=== PATIENT | female | born 1975 | race American Indian/Alaskan Native ===

== ENCOUNTER 2019-04-12 17:58 | Observation (INO) | payer OTHER ==
--- NOTE | 2019-04-12 18:19 | Event Note ---
ED Screening Note Date of service: 04/12/19 Time: 18:12 ED Screening Note: 44 y/o female comes in for fatigue, , chest pain, numbness right arm, dizziness, blurred vision. No PMH No meds. Blood glucose 86 This initial assessment/diagnostic orders/clinical plan/treatment(s) is/are subject to change based on patients health status, clinical progression and re- assessment by fellow clinical providers in the ED. Further treatment and workup at subsequent clinical providers discretion. Patient/guardian urged not to elope from the ED as their condition may be serious if not clinically assessed and managed. Initial orders include:
--- NOTE | 2019-04-12 19:02 | XRay Report ---
PROCEDURE: XR CHEST ROUTINE 2V TECHNIQUE: PA and lateral chest radiographs were obtained. HISTORY: Chest Pain COMPARISONS: None. FINDINGS: There is no visible pulmonary consolidation. No evidence of pneumothorax. No radiographically visible pleural effusion. Cardiac silhouette size is normal without vascular congestion. No visible acute displaced fracture in the regional skeleton. IMPRESSION: No acute cardiopulmonary disease in the visualized chest. This document is electronically signed by Adán Antoine MD., April 12 2019 07:00:09 PM ET
[2019-04-12 19:18] LABS: Basophils # (Auto) 0.1 K/mm3 (0.0-0.1); Basophils % (Auto) 1.2 % (0.0-1.8); Eosinophils # (Auto) 0.1 K/mm3 (0.0-0.4); Eosinophils % (Auto) 1.4 % (0.0-4.3); Hematocrit 38.5 % (30.3-42.9); Hemoglobin 12.7 gm/dl (10.1-14.3); Lymphocytes # (Auto) 2.5 K/mm3 (1.2-5.4); Lymphocytes % (Auto) 40.8 % (13.4-35.0); Mean Corpuscular HGB Conc 33 % (30-34); Mean Corpuscular Volume 81 fl (79-97); Monocytes # (Auto) 0.4 K/mm3 (0.0-0.8); Monocytes % (Auto) 6.4 % (0.0-7.3); Platelet Count 258 K/mm3 (140-440); Red Blood Count 4.75 M/mm3 (3.65-5.03); Red Cell Distribution Width 13.6 % (13.2-15.2)
[2019-04-12 19:44] LABS: Alanine Aminotransferase 13 units/L (7-56); Albumin 4.2 g/dL (3.9-5); BUN/Creatinine Ratio 24; Blood Urea Nitrogen 17 mg/dL (7-17); Calcium 9.4 mg/dL (8.4-10.2); Hemolysis Index 14
[2019-04-12 20:08] LABS: Bacteria,Urine 1+ /HPF (Negative); Bilirubin,Urine NEG (Negative); Blood,Urine SM (Negative); Color,Urine Straw (Yellow); Protein,Urine <15 mg/dL mg/dL (Negative); Urobilinogen,Urine < 2.0 mg/dL (<2.0)
[2019-04-12] MEDS ORDERED: MORPHINE IV ONE (20:08)
[2019-04-12] MEDS ORDERED: ANTIVERT PO ONE (20:08)
[2019-04-12 20:10] LABS: WBC,Urine < 1.0 /HPF (0.0-6.0)
--- NOTE | 2019-04-12 20:47 | Cat Scan Report ---
PROCEDURE: CT HEAD/BRAIN WO CON TECHNIQUE: Computerized tomography of the head was performed without contrast material. CT DOSE LENGTH PRODUCT: 1035.5 mGycm HISTORY: dizziness, headache COMPARISONS: None . FINDINGS: Skull and scalp: Normal . Paranasal sinuses: Normal . Ventricles and subarachnoid spaces: Normal . Cerebrum: No evidence of hemorrhage, acute infarction or mass . Cerebellum and brainstem: No evidence of hemorrhage, acute infarction or mass . Vasculature: Normal . Other: None . ASPECTS: 10 IMPRESSION: No acute intracranial abnormality. This document is electronically signed by Annamarie Cummins MD., April 12 2019 08:45:23 PM ET
--- NOTE | 2019-04-12 20:54 | Emergency Department Report ---
ED Chest Pain HPI - General Chief Complaint: Chest Pain Stated Complaint: RT ARM TINGLE/SOB/DIZZY Time Seen by Provider: 04/12/19 19:43 Source: patient Mode of arrival: Ambulatory Limitations: No Limitations - History of Present Illness Initial Comments: 44-year-old -British female presents to the emergency department with complaint of some nonspecific dizziness, some tingling in her right arm, midsternal chest pain, frontal headache that started earlier this afternoon. Currently she just complains of some mild chest tightness and a mild frontal headache. She says that it feels like her eyes have a burning sensation and she had some blurry vision earlier that has since resolved. She denies any slurred speech, fever, nausea, vomiting or any shortness of breath. No recent travel or sick contacts at home. She did not take anything for her symptoms prior to presentation. She denies any tobacco or illicit drug use. She has a primary care physician but cannot currently remember the name. Severity scale (0 -10): 6 - Related Data Home Medications Medication Instructions Recorded Confirmed Last Taken No Known Home Medications [No 04/12/19 04/12/19 Unknown Reported Home Medications] Allergies Allergy/AdvReac Type Severity Reaction Status Date / Time No Known Allergies Allergy Unverified 04/12/19 18:02 Heart Score - HEART Score History: Slightly suspicious EKG: Normal Age: 45-65 Risk factors: No known risk factors Troponin: < normal limit HEART Score: 1 - Critical Actions Critical Actions: 0-3 pts:0.9-1.7%risk of adverse cardiac event.Candidate for discharge ED Review of Systems ROS: Stated complaint: RT ARM TINGLE/SOB/DIZZY Other details as noted in HPI Comment: All other systems reviewed and negative Constitutional: denies: chills, fever Eyes: eye pain, eye discharge ENT: denies: ear pain, throat pain Respiratory: denies: cough, wheezing Cardiovascular: chest pain. denies: palpitations Gastrointestinal: denies: abdominal pain, vomiting Genitourinary: denies: urgency, dysuria Musculoskeletal: denies: back pain, arthralgia Skin: denies: rash, lesions Neurological: headache, other (dizziness) ED Past Medical Hx - Past Medical History Previous Medical History?: No - Surgical History Past Surgical History?: Yes Additional Surgical History: hysterectomy - Social History Smoking Status: Never Smoker Substance Use Type: None - Medications Home Medications: Home Medications Medication Instructions Recorded Confirmed Last Taken Type No Known Home Medications [No 04/12/19 04/12/19 Unknown History Reported Home Medications] ED Physical Exam - General Limitations: No Limitations - Other Other exam information: GENERAL: The patient is well-developed well-nourished. HENT: Normocephalic. Atraumatic. Patient has moist mucous membranes. EYES: Extraocular motions are intact. Pupils equal reactive to light bilaterally. There is some fatigable horizontal nystagmus. NECK: Supple. Trachea is midline. CHEST/LUNGS: Clear to auscultation. There is no respiratory distress noted. HEART/CARDIOVASCULAR: Regular. There is no tachycardia. There is no murmur. ABDOMEN: Abdomen is soft, nontender. Patient has normal bowel sounds. There is no abdominal distention. SKIN: Skin is warm and dry. NEURO: The patient is awake, alert, and oriented. The patient is cooperative. The patient has no focal neurologic deficits. The patient has normal speech. Cranial nerves II through XII grossly intact. No pronator drift. No dysmetria. MUSCULOSKELETAL: There is no tenderness or deformity. There is no limitation range of motion. There is no evidence of acute injury. ED Course Vital Signs 04/12/19 04/12/19 04/12/19 18:23 19:35 19:47 Temperature 97.9 F Pulse Rate 77 72 71 Respiratory 19 12 17 Rate Blood Pressure 145/87 Blood Pressure 174/92 150/85 [Left] O2 Sat by Pulse 100 100 99 Oximetry 04/12/19 04/12/19 04/12/19 20:00 20:50 21:00 Temperature Pulse Rate 68 67 69 Respiratory 14 25 H 17 Rate Blood Pressure 145/87 160/80 160/80 Blood Pressure [Left] O2 Sat by Pulse 100 100 100 Oximetry 04/12/19 04/12/19 04/12/19 21:15 21:30 21:45 Temperature Pulse Rate 66 66 72 Respiratory 20 18 19 Rate Blood Pressure 142/86 142/86 152/89 Blood Pressure [Left] O2 Sat by Pulse 99 99 100 Oximetry 04/12/19 04/12/19 04/12/19 22:00 22:16 22:30 Temperature Pulse Rate 67 66 71 Respiratory 11 L 19 17 Rate Blood Pressure 152/89 179/120 179/120 Blood Pressure [Left] O2 Sat by Pulse 100 98 100 Oximetry 04/12/19 04/12/19 04/12/19 22:46 23:00 23:16 Temperature Pulse Rate 73 66 72 Respiratory 13 16 13 Rate Blood Pressure 179/120 179/120 179/120 Blood Pressure [Left] O2 Sat by Pulse 100 100 100 Oximetry 04/12/19 04/13/19 23:47 00:00 Temperature Pulse Rate 75 67 Respiratory 16 15 Rate Blood Pressure 179/120 124/64 Blood Pressure [Left] O2 Sat by Pulse Oximetry SAIDA score - Saida Score Age > 65: (0) No Aspirin use within the Past 7 Days: (0) No 3 or more CAD Risk Factors: (0) No 2 or more Angina events in past 24 hrs: (1) Yes Known CAD with more than 50% Stenosis: (0) No Elevated Cardiac Markers: (0) No ST Deviation Greater than 0.5mm: (0) No SAIDA Score: 1 ED Medical Decision Making - Lab Data Result diagrams: 04/12/19 19:00 04/12/19 19:00 - EKG Data -: EKG Interpreted by Me EKG shows normal: sinus rhythm, axis, intervals, QRS complexes, ST-T waves Rate: normal - EKG Data When compared to previous EKG there are: previous EKG unavailable Interpretation: normal EKG - Radiology Data Radiology results: report reviewed, image reviewed interpreted by me: Chest x-ray does not show any acute process. There are no pleural effusions, obvious pneumonia and there is no pneumothorax. PROCEDURE: CT HEAD/BRAIN WO CON TECHNIQUE: Computerized tomography of the head was performed without contrast material. CT DOSE LENGTH PRODUCT: 1035.5 mGycm HISTORY: dizziness, headache COMPARISONS: None . FINDINGS: Skull and scalp: Normal . Paranasal sinuses: Normal . Ventricles and subarachnoid spaces: Normal . Cerebrum: No evidence of hemorrhage, acute infarction or mass . Cerebellum and brainstem: No evidence of hemorrhage, acute infarction or mass . Vasculature: Normal . Other: None . ASPECTS: 10 IMPRESSION: No acute intracranial abnormality. This document is electronically signed by Annamarie Cummins MD., April 12 2019 08:45:2 3 PM ET Transcribed By: [facility] Dictated By: ANNAMARIE CUMMINS MD Electronically Authenticated By: ANNAMARIE CUMMINS MD Signed Date/Time: 04/12/192046 - Medical Decision Making This patient presents to the emergency department with a complaint of a headache, dizziness/lightheadedness and some chest discomfort. On examination she does not have any focal, motor or sensory deficits in her cranial nerves are intact. CT of head without contrast did not show any bleed, shift, mass, ischemia, or any other acute process. Chest x-ray also does not show any acute process without any pneumothorax, focal consolidation, pneumonia, pleural effusions. Labs thus far been unremarkable including a negative troponin. Patient has developed some hypertension but otherwise the vital signs are stable throughout her ED course. She was given a dose of Antivert and morphine for her symptoms. Upon reevaluation she is still complaining of some mild chest pressure and a headache. She has never had a full cardiac workup and continues to have some chest discomfort, and therefore the patient will be admitted to the hospital for further evaluation and treatment was except for admission by the hospitalist, Dr Agrawal. - Differential Diagnosis DC, CVA, TIA, Costochondritis, Pneumonia Critical Care Time: No Critical care attestation.: If time is entered above; I have spent that time in minutes in the direct care of this critically ill patient, excluding procedure time. ED Disposition Clinical Impression: Acute chest pain, Dizziness, Lightheaded Headache Qualifiers: Headache type: unspecified Headache chronicity pattern: unspecified pattern Intractability: not intractable Qualified Code(s): R51 - Headache Disposition: OP ADMIT IP TO THIS HOSP Is pt being admited?: Yes Condition: Fair Time of Disposition: 00:30
--- NOTE | 2019-04-12 22:33 | History and Physical Report ---
History of Present Illness Chief complaint: Chest pain History of present illness: 44-year-old woman who presents to the hospital with right arm, substernal chest pain and frontal headache. The pain is 4 out of 10. Sternal, no exacerbating or relieving factors. It is dull in nature. She denies any focal weakness or slurred speech. She has been feeling dizzy. She states that dizziness has been constant and is not worsened by standing or sitting. She states that when her headache got really bad it was associated with blurred vision, but her vision is now normal. Headache was frontal in nature and pounding. Past medical history; denies any chronic medical conditions Surgical history hysterectomy Social history; never smoker denies illicit drugs or alcohol X Family history; significant for hypertension Medications and Allergies Allergies Allergy/AdvReac Type Severity Reaction Status Date / Time No Known Allergies Allergy Unverified 04/12/19 18:02 Home Medications Medication Instructions Recorded Confirmed Last Taken Type No Known Home Medications [No 04/12/19 04/12/19 Unknown History Reported Home Medications] Review of Systems All systems: negative Constitutional: no weight loss, no fatigue Eyes: bilateral: blurred vision Ears, nose, mouth and throat: no ear pain Breasts: deferred Cardiovascular: chest pain Respiratory: no cough Gastrointestinal: no abdominal pain Genitourinary Female: no dyspareunia Menstruation: no currently menstrual Rectal: no pain Musculoskeletal: no neck stiffness Integumentary: no rash Neurological: no head injury Psychiatric: no anxiety Endocrine: no cold intolerance Hematologic/Lymphatic: no easy bruising Allergic/Immunologic: no urticaria Exam - Constitutional Vitals: Temp Pulse Resp BP Pulse Ox 97.9 F 72 12 150/85 100 04/12/19 18:23 04/12/19 19:35 04/12/19 19:35 04/12/19 19:35 04/12/19 19:35 General appearance: Present: mild distress, well-nourished - EENT Eyes: Present: PERRL ENT: hearing intact, clear oral mucosa - Neck Neck: Present: supple, normal ROM - Respiratory Respiratory effort: normal Respiratory: bilateral: CTA - Cardiovascular Heart Sounds: Present: S1 & S2. Absent: rub, click - Extremities Extremities: pulses symmetrical, No edema Peripheral Pulses: within normal limits - Abdominal General gastrointestinal: Present: soft, non-tender, non-distended, normal bowel sounds Female genitourinary: Present: normal - Integumentary Integumentary: Present: clear, warm, dry - Musculoskeletal Musculoskeletal: gait normal, strength equal bilaterally - Psychiatric Psychiatric: appropriate mood/affect, intact judgment & insight - Neurologic Neurologic: CNII-XII intact, moves all extremities Results - Labs CBC & Chem 7: 04/12/19 19:00 04/12/19 19:00 Labs: Laboratory Last Values WBC 6.1 K/mm3 (4.5-11.0) 04/12/19 19:00 RBC 4.75 M/mm3 (3.65-5.03) 04/12/19 19:00 Hgb 12.7 gm/dl (10.1-14.3) 04/12/19 19:00 Hct 38.5 % (30.3-42.9) 04/12/19 19:00 MCV 81 fl (79-97) 04/12/19 19:00 MCH 27 pg (28-32) L 04/12/19 19:00 MCHC 33 % (30-34) 04/12/19 19:00 RDW 13.6 % (13.2-15.2) 04/12/19 19:00 Plt Count 258 K/mm3 (140-440) 04/12/19 19:00 Lymph % (Auto) 40.8 % (13.4-35.0) H 04/12/19 19:00 [place] % (Auto) 6.4 % (0.0-7.3) 04/12/19 19:00 Eos % (Auto) 1.4 % (0.0-4.3) 04/12/19 19:00 Baso % (Auto) 1.2 % (0.0-1.8) 04/12/19 19:00 Lymph # 2.5 K/mm3 (1.2-5.4) 04/12/19 19:00 [place] # 0.4 K/mm3 (0.0-0.8) 04/12/19 19:00 Eos # 0.1 K/mm3 (0.0-0.4) 04/12/19 19:00 Baso # 0.1 K/mm3 (0.0-0.1) 04/12/19 19:00 Seg Neutrophils % 50.2 % (40.0-70.0) 04/12/19 19:00 Seg Neutrophils # 3.1 K/mm3 (1.8-7.7) 04/12/19 19:00 Sodium 139 mmol/L (137-145) 04/12/19 19:00 Potassium 4.1 mmol/L (3.6-5.0) 04/12/19 19:00 Chloride 100.9 mmol/L (98-107) 04/12/19 19:00 Carbon Dioxide 24 mmol/L (22-30) 04/12/19 19:00 18 mmol/L 04/12/19 19:00 BUN 17 mg/dL (7-17) 04/12/19 19:00 0.7 mg/dL (0.7-1.2) 04/12/19 19:00 Estimated GFR > 60 ml/min 04/12/19 19:00 24 % 04/12/19 19:00 Glucose 88 mg/dL (65-100) 04/12/19 19:00 Calcium 9.4 mg/dL (8.4-10.2) 04/12/19 19:00 0.30 mg/dL (0.1-1.2) 04/12/19 19:00 AST 15 units/L (5-40) 04/12/19 19:00 ALT 13 units/L (7-56) 04/12/19 19:00 63 units/L (35-129) 04/12/19 19:00 < 0.010 ng/mL (0.00-0.029) 04/12/19 19:00 7.7 g/dL (6.3-8.2) 04/12/19 19:00 4.2 g/dL (3.9-5) 04/12/19 19:00 1.2 % 04/12/19 19:00 TSH 1.530 mlU/mL (0.270-4.200) 04/12/19 20:14 Straw (Yellow) 04/12/19 19:19 Clear (Clear) 04/12/19 19:19 5.0 (5.0-7.0) 04/12/19 19:19 Ur Specific [place] 1.006 (1.003-1.030) 04/12/19 19:19 <15 mg/dl mg/dL (Negative) 06/18/19 19:19 Neg mg/dL (Negative) 04/12/19 19:19 Tr mg/dL (Negative) 04/12/19 19:19 Sm (Negative) 04/12/19 19:19 Neg (Negative) 04/12/19 19:19 Neg (Negative) 04/12/19 19:19 < 2.0 mg/dL (<2.0) 04/12/19 19:19 Ur Leukocyte Esterase Neg (Negative) 04/12/19 19:19 < 1.0 /HPF (0.0-6.0) 04/12/19 19:19 2.0 /HPF (0.0-6.0) 04/12/19 19:19 U Epithel Cells (Auto) 4.0 /HPF (0-13.0) 04/12/19 19:19 1+ /HPF (Negative) 04/12/19 19:19 - Imaging and Cardiology Chest x-ray: image reviewed (no acute findings) CT Scan - head: image reviewed (no acute findings) Assessment and Plan Assessment and plan: 44-year-old woman who presents to the hospital with fatigue chest pain numbness of the right arm and dizziness Past medical history; denies any significant past medical history, does not take any meds at home Diagnoses Chest pain, likely due to hypertensive urgency Hypertensive urgency Dizziness and giddiness Transient autonomic imbalance Plan EKG, chest x-ray, troponins negative Obtain echo and stress test Obtain orthostatic blood pressure -We'll start patient on blood pressure medications DVT prophylaxis, early ambulation
[2019-04-12] MEDS ORDERED: ZOFRAN IV PRN (23:56)
[2019-04-12] MEDS ORDERED: SODIUM CHLORIDE FLUSH SYRINGE 10 ML IV PRN ×2 (23:56→23:57)
[2019-04-12] MEDS ORDERED: TYLENOL PO PRN (23:56)
[2019-04-12] MEDS ORDERED: APRESOLINE IV PRN (23:59)
[2019-04-13] MEDS ORDERED: NORVASC PO ONE (00:15)
[2019-04-13] MEDS ORDERED: NORVASC ONE (00:42)
[2019-04-13] MEDS: MORPHINE IV PRN ×2 (05:57→11:45)
[2019-04-13] MEDS ORDERED: LEXISCAN IV ONE ×2 (08:41)
[2019-04-13] MEDS ORDERED: NORVASC PO SCH (10:00)
[2019-04-13] MEDS ORDERED: SODIUM CHLORIDE FLUSH SYRINGE 10 ML IV SCH (10:00)
--- NOTE | 2019-04-13 12:46 | Event Note ---
Date: 04/13/19 Patient has completed nuclear stress test. Patient's nuclear stress test shows a small fixed anterior defect is likely secondary to attenuation. Patient's nuclear stress test shows no signs of reversible myocardial ischemia. Ejection fraction is 72% patient is low risk for significant cardiovascular disease.
--- NOTE | 2019-04-13 13:54 | Discharge Summary ---
Providers - Providers Date of Admission: 04/12/19 23:56 Date of discharge: 04/13/19 Attending physician: ANGEL DE LA CRUZ 04/12/19 Consult to Cardiac Rehabilitation [CONS] Routine Reason For Exam: Phase I Primary care physician: JEREMIAH WARD Hospitalization Reason for admission: chest pain Condition: Fair Pertinent studies: CT head without contrast; no abnormality Stress test; fixed defect secondary to attenuation negative for ischemia, EF 72% Chest x-ray; no acute abnormality Hospital course: 44-year-old female patient with significant past medical history of hypertension and diabetes mellitus was admitted through emergency room with atypical chest pain, patient was initially evaluated admitted symptomatically managed, in view of multiple disc factors patient underwent stress test which was negative for reversible ischemia, and normal left ventricular function, patient had hypertensive urgency at the time of admission blood pressure was well controlled with antihypertensives, symptoms significantly improved Today patient is comfortable in no new complaints vital signs stable Physical examination is unremarkable Hemodynamically and clinically stable at discharge Discharge diagnosis; --Atypical Chest pain ; probably noncardiac, stress test negative --Chest pain probably secondary to GERD; Pepcid --Hypertensive urgency; present on admission, BP well-controlled now --Dizziness and giddiness; secondary to hypertensive urgency Symptoms resolved Patient is stable at discharge Follow-up with cardiology and primary care physician per schedule Disposition: DC-01 TO HOME OR SELFCARE Time spent for discharge: 32 min Core Measure Documentation - Palliative Care Palliative Care/ Comfort Measures: Not Applicable - Core Measures Any of the following diagnoses?: none Exam - Constitutional Vitals: Temp Pulse Resp BP Pulse Ox 98.1 F 106 H 20 110/69 100 04/13/19 03:35 04/13/19 09:36 04/13/19 05:57 04/13/19 09:36 04/13/19 03:35 General appearance: Present: no acute distress, well-nourished - EENT Eyes: Present: PERRL, EOM intact - Neck Neck: Present: supple, normal ROM - Respiratory Respiratory effort: normal Respiratory: bilateral: diminished, wheezing, negative: rales, rhonchi - Cardiovascular Rhythm: regular Heart Sounds: Present: S1 & S2 - Extremities Extremities: no ischemia, pulses intact - Abdominal General gastrointestinal: Present: soft, non-tender, non-distended, normal bowel sounds - Integumentary Integumentary: Present: clear, warm - Musculoskeletal Musculoskeletal: strength equal bilaterally, generalized weakness - Psychiatric Psychiatric: appropriate mood/affect, cooperative - Neurologic Neurologic: CNII-XII intact, moves all extremities Plan Activity: advance as tolerated, fall precautions Diet: regular Additional Instructions: Advised one day but excuse on 04/14/2019. May return to work 04/15/2019, if unable advised to check with primary care physician for further recommendations. If he has recurrent chest pain ,see [employer] for further evaluation and management Follow up with: JEREMIAH WARD MD [Primary Care Provider] - 3-5 Days DEB ANDRES MD [Staff Physician] - 7 Days Forms: Work/School Release Form Prescriptions: amLODIPine [Norvasc] 10 mg PO QDAY #30 tablet Famotidine [Pepcid] 10 mg PO BID #30 tablet
[2019-04-13 16:03] VITALS: BP 109/68
--- NOTE | 2019-04-15 05:08 | Treadmill Report ---
THALLIUM STRESS TEST LEFT VENTRICLE: Left ventricular chamber size is within normal limits. Perfusion study demonstrates homogeneous uptake of the tracer in all segments, no significant perfusion defects identified. Gated analysis demonstrates normal left ventricular systolic function, ejection fraction 72%. CONCLUSION: Normal myocardial perfusion study. JOB# [id number] CA/NTS
== END 2019-04-13 18:00 | disposition home or self-care (01) ==
LOC: ED 17:58 → 4A 23:56
PROVIDERS: ADMIT Internal Medicine; ATTEND Internal Medicine
DX: R07.89 Other chest pain (principal); I16.0 Hypertensive urgency; R42 Dizziness and giddiness; G90.8 Other disorders of autonomic nervous system; Z90.710 Acquired absence of both cervix and uterus
CPT/HCPCS: 36415; 70450; 71046; 78452; 80053; 81001; 82962; 84443; 84484; 85025; 93005; 93010; 93017; 96374; 96375; 96376; 99284; A9502; G0378; J2270; J2405; J2785

== ENCOUNTER 2019-10-03 07:51 | Emergency (ER) | payer OTHER ==
[2019-10-03] MEDS ORDERED: ASPIRIN 325 MG TAB PO ONE (07:57)
[2019-10-03 08:36] LABS: Basophils % (Auto) 0.9 % (0.0-1.8); Eosinophils # (Auto) 0.1 K/mm3 (0.0-0.4); Eosinophils % (Auto) 1.6 % (0.0-4.3); Hematocrit 40.3 % (30.3-42.9); Hemoglobin 13.3 gm/dl (10.1-14.3); Lymphocytes # (Auto) 1.5 K/mm3 (1.2-5.4); Lymphocytes % (Auto) 30.2 % (13.4-35.0); Mean Corpuscular HGB Conc 33 % (30-34); Mean Corpuscular Volume 81 fl (79-97); Monocytes # (Auto) 0.3 K/mm3 (0.0-0.8); Monocytes % (Auto) 6.3 % (0.0-7.3); Platelet Count 239 K/mm3 (140-440); Red Blood Count 4.98 M/mm3 (3.65-5.03); Red Cell Distribution Width 14.2 % (13.2-15.2)
--- NOTE | 2019-10-03 08:36 | XRay Report ---
CHEST 2 VIEWS INDICATION: Chest pain for one day. COMPARISON: 04/12/2019 FINDINGS: Support devices: None. Heart: Within normal limits. Lungs/pleura: No acute air space or interstitial disease. No pneumothorax. Additional findings: None. IMPRESSION: No acute findings. Signer Name: Brad Weeks Jr, MD Signed: 10/03/2019 8:32 AM Workstation Name: [id number]
[2019-10-03 08:59] LABS: BUN/Creatinine Ratio 23; Blood Urea Nitrogen 16 mg/dL (7-17); Calcium 8.9 mg/dL (8.4-10.2); Hemolysis Index 10
[2019-10-03] MEDS ORDERED: traMADol 50 MG TAB PO ONE (09:31)
[2019-10-03] MEDS ORDERED: LIDOCAINE VISCOUS 2% 15 ML ORAL LIQD PO ONE (09:31)
[2019-10-03] MEDS ORDERED: ALUM-MAG HYDROXIDE-SIMETHICONE 200-200-20MG/5ML ORAL LIQD 30 ML PO ONE (09:31)
[2019-10-03] MEDS ORDERED: ASPIRIN 325 MG TAB ONE (10:16)
--- NOTE | 2019-10-03 10:53 | Emergency Department Report ---
ED Chest Pain HPI - General Chief Complaint: Chest Pain Stated Complaint: CHEST PAIN/SOB Time Seen by Provider: 10/03/19 09:03 Source: patient, old records reviewed Mode of arrival: Ambulatory Limitations: No Limitations - History of Present Illness Initial Comments: 44-year-old female with a past medical history of hypertension, GERD, and hysterectomy presents to the hospital complains of heaviness to her chest since last evening. Pain started in the midsternal area at 11 PM. It was constant heaviness the [place] off prior to falling asleep at midnight. She complains of mild shortness of breath without nausea, vomiting, diaphoresis, or lightheade dness. Upon waking this morning she noticed that pain reoccurred and described as a 6/10 heaviness with intermittent achy component. Patient is compliant with her medications but doesn't think she is still taking gerd med. She was admitted here in March for chest pain and had a negative stress test for reversible ischemia and normal LV function. She was treated for hypertensive urgency with improved blood pressure at discharge. Patient denies history of PE/DVT, recent travel, recent surgery, smoking history, family history of CAD, calf tenderness, cough or cold symptoms, fever, or leg edema. Severity scale (0 -10): 6 - Related Data Previous Rx's Medication Instructions Recorded Last Taken Type Famotidine [Pepcid] 10 mg PO BID #30 tablet 04/13/19 Unknown Rx amLODIPine 10 mg PO QDAY #30 tablet 04/13/19 Unknown Rx Famotidine [Pepcid] 20 mg PO BID #30 tablet 10/03/19 Unknown Rx Mag Hydrox/Aluminum Hyd/Simeth 20 ml PO QID PRN #1 bottle 10/03/19 Unknown Rx [Maalox Advanced Suspension] traMADoL [Ultram 50 MG tab] 50 mg PO Q6HR PRN #20 tablet 10/03/19 Unknown Rx Allergies Allergy/AdvReac Type Severity Reaction Status Date / Time No Known Allergies Allergy Unverified 04/12/19 18:02 Heart Score - HEART Score History: Slightly suspicious EKG: Normal Age: 45-65 Risk factors: 1-2 risk factors Troponin: < normal limit HEART Score: 2 ED Review of Systems ROS: Stated complaint: CHEST PAIN/SOB Other details as noted in HPI Comment: All other systems reviewed and negative ED Past Medical Hx - Past Medical History Previous Medical History?: Yes Hx Hypertension: Yes - Surgical History Past Surgical History?: Yes Additional Surgical History: hysterectomy - Social History Smoking Status: Never Smoker Substance Use Type: None - Medications Home Medications: Home Medications Medication Instructions Recorded Confirmed Last Taken Type Famotidine [Pepcid] 10 mg PO BID #30 tablet 04/13/19 Unknown Rx amLODIPine 10 mg PO QDAY #30 tablet 04/13/19 Unknown Rx Famotidine [Pepcid] 20 mg PO BID #30 tablet 10/03/19 Unknown Rx Mag Hydrox/Aluminum Hyd/Simeth 20 ml PO QID PRN #1 bottle 10/03/19 Unknown Rx [Maalox Advanced Suspension] traMADoL [Ultram 50 MG tab] 50 mg PO Q6HR PRN #20 tablet 10/03/19 Unknown Rx ED Physical Exam - General Limitations: No Limitations - Other Other exam information: General: No acute distress Head: Atraumatic Eyes: normal appearance ENT: Moist mucous membranes Neck: Normal appearance, no midline tenderness Chest: Clear to auscultation bilaterally, chest wall nontender CV: Regular rate and rhythm Abdomen: Soft, normal bowel sounds, nontender, nondistended, no rebound or guarding Back: Normal inspection Extremity: Normal inspection infection, full range of motion, no calf tenderness or leg edema Neuro: Alert O x 3, no facial asymmetry, speech clear, no gross motor sensory deficit Psych: Appropriate behavior Skin: No rash ED Course Vital Signs 10/03/19 07:55 Temperature 97.6 F Pulse Rate 71 Respiratory 16 Rate Blood Pressure 132/71 O2 Sat by Pulse 100 Oximetry SAIDA score - Saida Score Age > 65: (0) No Aspirin use within the Past 7 Days: (0) No 3 or more CAD Risk Factors: (0) No 2 or more Angina events in past 24 hrs: (1) Yes Known CAD with more than 50% Stenosis: (0) No Elevated Cardiac Markers: (0) No ST Deviation Greater than 0.5mm: (0) No SAIDA Score: 1 ED Medical Decision Making - Lab Data Result diagrams: 10/03/19 08:18 10/03/19 08:18 Lab Results 10/03/19 10/03/19 10/03/19 Range/Units 08:18 08:18 10:45 WBC 5.0 (4.5-11.0) K/mm3 RBC 4.98 (3.65-5.03) M/mm3 Hgb 13.3 (10.1-14.3) gm/dl Hct 40.3 (30.3-42.9) % MCV 81 (79-97) fl MCH 27 L (28-32) pg MCHC 33 (30-34) % RDW 14.2 (13.2-15.2) % Plt Count 239 (140-440) K/mm3 Lymph % (Auto) 30.2 (13.4-35.0) % [place] % (Auto) 6.3 (0.0-7.3) % Eos % (Auto) 1.6 (0.0-4.3) % Baso % (Auto) 0.9 (0.0-1.8) % Lymph # 1.5 (1.2-5.4) K/mm3 [place] # 0.3 (0.0-0.8) K/mm3 Eos # 0.1 (0.0-0.4) K/mm3 Baso # 0.0 (0.0-0.1) K/mm3 Seg Neutrophils % 61.0 (40.0-70.0) % Seg Neutrophils # 3.0 (1.8-7.7) K/mm3 Sodium 135 L (137-145) mmol/L Potassium 4.0 (3.6-5.0) mmol/L Chloride 97.7 L (98-107) mmol/L Carbon Dioxide 24 (22-30) mmol/L Anion Gap 17 mmol/L BUN 16 (7-17) mg/dL Creatinine 0.7 (0.7-1.2) mg/dL Estimated GFR > 60 ml/min BUN/Creatinine Ratio 23 % Glucose 102 H (65-100) mg/dL Calcium 8.9 (8.4-10.2) mg/dL Troponin T < 0.010 < 0.010 (0.00-0.029) ng/mL - EKG Data -: EKG Interpreted by Me EKG shows normal: sinus rhythm, ST-T waves (no stmei) Rate: normal (67) - EKG Data When compared to previous EKG there are: no significant change 10/03/19 11:06 repeat ekg at 11:02 no changes, nsr no stemi/st/t changes - Radiology Data Radiology results: report reviewed CHEST 2 VIEWS INDICATION: Chest pain for one day. COMPARISON: 04/12/2019 FINDINGS: Support devices: None. Heart: Within normal limits. Lungs/pleura: No acute air space or interstitial disease. No pneumothorax. Additional findings: None. IMPRESSION: No acute findings. - Medical Decision Making PERC PE score 0 ekg normal and unchanged x 2 trop neg x 2 heart score 2 recent neg stress test cxr neg pt tx with tramadol, maalox, viscous lidocaine similar meds at d/c plan to f/u with pmd Dr Call as an outpt. - Differential Diagnosis atypical cp, mi, unstable angina, pe Critical Care Time: No Critical care attestation.: If time is entered above; I have spent that time in minutes in the direct care of this critically ill patient, excluding procedure time. ED Disposition Clinical Impression: Atypical chest pain, Hx of gastroesophageal reflux (GERD) Disposition: TO HOME OR SELFCARE Is pt being admited?: Yes Condition: Stable Instructions: Chest Pain (ED), Gastroesophageal Reflux Disease (ED) Additional Instructions: Take the medication as prescribed. Follow-up with your doctor or doctor/clinic provided. Return if symptoms worsen as indicated by your discharge instructions. Prescriptions: Mag Hydrox/Aluminum Hyd/Simeth [Maalox Advanced Suspension] 20 ml PO QID PRN #1 bottle PRN Reason: Indigestion Famotidine [Pepcid] 20 mg PO BID #30 tablet traMADoL [Ultram 50 MG tab] 50 mg PO Q6HR PRN #20 tablet PRN Reason: Pain Referrals: PRIMARY MD KM [Primary Care Provider] - 3-5 Days JEREMIAH WARD MD [Staff Physician] - 3-5 Days [facility] [Provider Group] - 3-5 Days Forms: Work/School Release Form(ED) Time of Disposition: 11:57
[2019-10-03 11:56] VITALS: BP 155/81
== END 2019-10-03 12:10 | disposition home or self-care (01) ==
LOC: ED 07:51
DX: R07.89 Other chest pain (principal); K21.9 Gastro-esophageal reflux disease without esophagitis; I10 Essential (primary) hypertension; Z90.710 Acquired absence of both cervix and uterus; Z79.899 Other long term (current) drug therapy
CPT/HCPCS: 36415; 71046; 80048; 84484; 85025; 93005; 93010